=== PATIENT | female | born 2000 | race Caucasian/White ===

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

== ENCOUNTER 2023-05-09 09:13 | Oncology outpatient (recurring) (ONCR) | payer OTHER, MEDICAID, SELFPAY ==
[2023-05-09 14:13] VITALS: BP 127/82; PULSE 97; RESP 18; TEMP 36.7; O2SAT 98
== END 2023-06-02 23:59 | disposition home or self-care (01) ==
PROVIDERS: PCP Family Medicine; Visit Provider Family Medicine
DX: O26.893 Other specified pregnancy related conditions, third trimester (principal); Z67.91 Unspecified blood type, Rh negative; Z53.9 Procedure and treatment not carried out, unspecified reason
CPT/HCPCS: 36415; 86850; 86900; 90384

== ENCOUNTER 2023-06-14 10:36 | Outpatient (CLI) | payer OTHER, MEDICAID, SELFPAY ==
[2023-06-14] VITALS (7 sets, daily range): BP systolic 104–119; BP diastolic 55–59; PULSE 82–86; RESP 16–18; BMI 35.0
[2023-06-14 11:53] LABS: Bilirubin Urine Neg (Negative); Blood Urine Neg (Negative); Glucose Urine UA Norm (Normal); Ketones Urine 1+ (Negative); Leukocyte Esterase Urine 2+ (Negative); Nitrate Urine Negative (Negative); Protein Urine Trace (Negative); Specific Gravity, Urine 1.025 (1.005-1.030); Urine Appearance Cloudy (CLEAR); Urine Color Dark Yellow (Yellow); Urobilinogen Urine Norm (Negative); pH Urine 6 (5-7)
[2023-06-14 11:57] LABS: Add Urine Culture? Yes; Bacteria Urine 2+ /hpf; Calcium Oxalate Crystals Urine 25-40 /hpf; Mucus Urine 2+ /hpf; RBC Urine 0-4 /hpf (0-2); Transitional Epi Cells Urine 0-4 /hpf
== END 2023-06-14 12:15 | disposition home or self-care (01) ==
LOC: OPOB 10:40 → OBGYN 10:41
PROVIDERS: PCP Family Medicine; Visit Provider Family Medicine
DX: O26.899 Other specified pregnancy related conditions, unspecified trimester (principal); Z3A.00 Weeks of gestation of pregnancy not specified; R10.9 Unspecified abdominal pain
CPT/HCPCS: 59025; 81001; 87086; 99211

== ENCOUNTER 2023-07-28 10:27 | Outpatient (CLI) | payer OTHER, MEDICAID, SELFPAY ==
[2023-07-28 10:29] VITALS: BMI 36.4
[2023-07-28 10:33] VITALS: BP 135/77; PULSE 103
[2023-07-28 10:49] VITALS: BP 119/64; PULSE 100
[2023-07-28 11:00] VITALS: BP 119/64; PULSE 100; RESP 16; TEMP 36.4
== END 2023-07-28 11:03 | disposition home or self-care (01) ==
LOC: OPOB 10:27 → OBGYN 10:28
PROVIDERS: PCP Family Medicine; Visit Provider Family Medicine
DX: O41.00X0 Oligohydramnios, unspecified trimester, not applicable or unspecified (principal); X58.XXXA Exposure to other specified factors, initial encounter
CPT/HCPCS: 59025

== ENCOUNTER 2023-08-07 01:52 | Outpatient (CLI) | payer OTHER, MEDICAID, SELFPAY ==
[2023-08-07 01:45] VITALS: BMI 37.3
[2023-08-07 02:02] VITALS: BP 132/98; PULSE 100
[2023-08-07 02:24] VITALS: BP 123/72; PULSE 96
[2023-08-07 02:35] VITALS: TEMP 36.1
[2023-08-07 02:50] VITALS: BP 123/72; PULSE 96; RESP 16; TEMP 36.1
== END 2023-08-07 02:54 | disposition home or self-care (01) ==
LOC: OPOB 01:56 → OBGYN 01:58
PROVIDERS: PCP Family Medicine; Visit Provider Family Medicine
DX: O46.90 Antepartum hemorrhage, unspecified, unspecified trimester (principal); Z3A.00 Weeks of gestation of pregnancy not specified
CPT/HCPCS: 59025; 99211

== ENCOUNTER 2023-08-11 00:39 | Outpatient (CLI) | payer OTHER, MEDICAID, SELFPAY ==
[2023-08-11 00:37] VITALS: BMI 38.4
[2023-08-11 00:52] VITALS: BP 132/77; PULSE 105
[2023-08-11 00:57] VITALS: TEMP 35.4
[2023-08-11 01:12] VITALS: BP 127/75; PULSE 90
[2023-08-11 01:59] VITALS: BP 135/76; PULSE 112
[2023-08-11] MEDS: ondansetron 4 MG Tablet PO (02:11)
[2023-08-11 02:57] VITALS: BP 132/79; PULSE 98
== END 2023-08-11 03:07 | disposition home or self-care (01) ==
LOC: OPOB 00:39 → OBGYN 00:40
PROVIDERS: PCP Family Medicine; Visit Provider Family Medicine
DX: O26.899 Other specified pregnancy related conditions, unspecified trimester (principal); Z3A.00 Weeks of gestation of pregnancy not specified
CPT/HCPCS: 59025; 99211; Q0162

== ENCOUNTER 2023-08-21 16:02 | Inpatient (IN) | payer OTHER, MEDICAID, SELFPAY ==
[2023-08-21] VITALS (50 sets, daily range): BP systolic 101–139; BP diastolic 58–95; PULSE 56–109; RESP 15–16; TEMP 36.3; O2SAT 91–100; BMI 42.7
--- NOTE | 2023-08-21 13:40 | USR_ITS ---
PROCEDURE INFORMATION: Exam: US , Limited Exam date and time: 08/21/2023 2:41 PM Age: 22 years old Clinical indication: Condition or disease; Other: Bradycardia; LABS AND CLINICAL REPORTS: Gestational age (Established): 40 w 2 d Estimated due date (Established): 08/19/2023 TECHNIQUE: Imaging protocol: Real-time ultrasound of the maternal uterus with image documentation. Exam focused on the clinical indication. COMPARISON: US OB >= 14 weeks fetus [id number] 04/20/2023 12:03 PM FINDINGS: Gestation: Detailed structure assessment was not performed on this exam. heart rate: cardiac activity is 124 bpm. There is decreased amniotic fluid level with CONCEPCIÓN of 4.3 cm with mean of 12.3 cm and 2.5th percentile of 6.3 cm. Findings are compatible with severe oligohydramnios. Placenta: The placenta is anterior. Relationship between inferior placental margin versus internal os is not assessed on this exam. BIOPHYSICAL PROFILE: gross body movement (BPP): There is motion and cardiac activity observed on real-time. MATERNAL: Uterus: There is a single intrauterine fetus in vertex position. Cervix: Maternal cervix is poorly visualized. Other findings: Limited 3rd trimester OB ultrasound was performed in conjunction with biophysical profile assessment. PROCEDURE INFORMATION: Exam: US Biophysical Profile Without Non-Stress Test Exam date and time: 08/21/2023 2:41 PM Age: 22 years old Clinical indication: Condition or disease; Other: Bradycardia; TECHNIQUE: Imaging protocol: US biophysical profile without non-stress testing. COMPARISON: US OB >= 14 weeks fetus [id number] 04/20/2023 12:03 PM FINDINGS: heart rate: 124 bpm Amniotic fluid index: CONCEPCIÓN is 4.32 cm. BIOPHYSICAL PROFILE: breathing (BPP): 2 out of 2. gross body movement (BPP): 2 out of 2. tone (BPP): 2 out of 2. Amniotic fluid (BPP): 2 out of 2. US/US OB BPP wo NST [id number] IMPRESSION: 1. Limited ultrasound in conjunction with biophysical exam report below. 2. Single live uterine fetus in vertex position with severe oligohydramnios. cardiac activity measures 124 bpm. IMPRESSION: 1. Biophysical profile score is 8/8. 2. Please also refer to limited Ob ultrasound report above. There is severe oligohydramnios.
[2023-08-21] MEDS: miSOPROStol 100 mcg tablet 25 MCG VAGINAL (15:34)
[2023-08-21 15:54] LABS: Basophils % 0.2 %; Eosinophils # 0.1 10^3/uL (0.0-0.8); Eosinophils % 0.8 %; Hematocrit 37.4 % (36-47); Lymphocytes % 16.5 %; Mean Corpuscular HGB Conc 29.9 g/dL (30-55); Mean Corpuscular Hemoglobin 22.6 pg (27-33); Mean Corpuscular Volume 75.4 fl (85-98); Mean Platelet Volume 9.7 fL (7.4-10.4); Monocytes # 0.8 10^3/uL (0.2-0.9); Monocytes % 6.3 %; Neutrophils # 9.09 10^3/uL (1.8-7.7); Neutrophils % 75.9 %; Nucleated Red Blood Cells % 0 %; Platelet Count 310 10^3/cmm (157-399); Red Blood Count 4.96 10^6/uL (3.85-5.65); Red Cell Distribution Width 16.8 % (12.1-15.1); White Blood Count 11.97 10^3/uL (3.29-11.43)
--- NOTE | 2023-08-21 17:19 | P.ANESASSM_ITS ---
Pre-Anesthetic Assessment Height/Weight: Height 1.55 m Weight 102.512 kg Pulse BP Pulse Ox O2 Del Method 87 118/60 100 Room Air 08/21/23 17:14 08/21/23 17:14 08/21/23 16:59 08/21/23 15:17 Familial anesthetic complications: none Was Beta Tanner taken within 24 hours: N/A Was Clonidine taken within 24 hours: N/A Social No alcohol and No tobacco Exam alert, oriented x 3, clear to auscultation bilaterally and regular rate & rhythm Airway Submandibular: within normal limits Cervical ROM: within normal limits Mallampati: Class II Dentition: full Metabolic Morbid Obesity Anesthetic Plan ASA status: 2 Anesthesia: Regional (specify below) (Labor epidural) Medications/Allergies Home Medications Medication Instructions Recorded Confirmed Last Taken Type pren vit comb.1-iron cb-FA-DSS 90 1 tab PO DAILY 06/14/23 08/11/23 08/11/23 History mg-1 mg-50 mg tablet Allergies Allergy/AdvReac Type Severity Reaction Status Date / Time Penicillins Allergy ALGY-Anaphy Verified 08/11/23 01:41 laxis Current Medications Generic Name Dose Route Start Last Admin Trade Name Freq PRN Reason Stop Dose Admin Misoprostol 25 mcg 08/21/23 15:19 08/21/23 15:34 Misoprostol 100 Mcg Tablet VAGINAL 25 mcg Q4H PRN Administration cervical ripening PFSH Anesthesia Social History Smoking and tobacco/nicotine status: never used tobacco/nicotine Female Reproductive History : 2 Data Anesthesia 08/21/23 15:45 Short CBC 08/21/23 Range/Units 15:45 WBC 11.97 H (3.29-11.43) 10^3/uL Hgb 11.20 L (11.27-16.99) g/dL Hct 37.4 (36-47) % MCV 75.4 L (85-98) fl Plt Count 310 (157-399) 10^3/cmm Neut % (Auto) 75.9 % Neut # (Auto) 9.09 H (1.8-7.7) 10^3/uL Blood Bank 08/21/23 15:45 Blood Type A Negative Rho(D) Type Rh negative Antibody Screen Negative Cardiac Studies: 2 No Data to Display Anesthesia Procedures Epidural Time Out Performed: Yes Consents Signed: Procedure Consent Consent: requested by attending/covering physician, from patient, risks and benefits reviewed and emergency procedure Lumbar Level: L3-L4 Epidural position: sitting Epidural procedure: sterile prep of area, 1% lidocaine to numb the area, 18 g needle, neg for paresthesia, test dose given, 1.5% xylocaine 1:200k epi, placed PCEA, no systemic response, sterile dressing applied and 0.2% Ropiavacaine @ mls/hr (10) Additional Comments: PHONG at 6cm, cath to 11cm, bolused 5mls of 2% lido
--- NOTE | 2023-08-21 20:10 | PC.NURSE ---
Patient in OR during recovery following section, nurse attempting to obtain temperature orally and axillary but multiple thermometers not reading temp, patient's skin cool to touch on face and arms and states is cold. Marie hugger and warm blankets placed on patient.
--- NOTE | 2023-08-21 20:57 | PM.OBGYHP ---
Providers/Chief Complaint Admitting Physician: Devante Duque MD Primary Care Provider: Rene Gates MD Chief Complaint: Contractions HPI PATIENT TRANSPORTATION DRIVER History of Present Illness Divya Quinones is a 22 year old female 3 para 0-0-2-0 at 40 weeks and 3 days who presented to the hospital having infrequent contractions. As a part of the initial evaluation, the baby was noted to have a heart rate in the 10 5-1 10 range. As result a biophysical profile was performed. The CONCEPCIÓN was noted to be below 5. Given her gestational age the decision was made to proceed with an induction. She was placed on Cytotec 25 mcg. An amniotomy was performed. An epidural was placed. She progressed to 5 cm dilated and 80% effaced. Her baby began to have minimal variability. The heart rate then dropped into the 90s then later dropped into the 60s. At that point the decision was made to proceed with a section. Present Details : 2 Para: 0 Labs Rubella: Immune RPR: Negative GBS: Negative Review of Systems General: Reports: 10 or more systems reviewed and unremarkable except in HPI and below Const: Reports: fatigue; Denies: fever(s) Eyes: Denies: change in vision Card: Denies: chest pain Musc: Reports: back pain Tim/Lymph: Denies: easy bruising Medications/Allergies Home Medications Medication Instructions Recorded Confirmed Last Taken Type pren vit comb.1-iron cb-FA-DSS 90 1 tab PO DAILY 06/14/23 08/11/23 08/11/23 History mg-1 mg-50 mg tablet Allergies Allergy/AdvReac Type Severity Reaction Status Date / Time Penicillins Allergy ALGY-Anaphy Verified 08/11/23 01:41 laxis PFSH PATIENT TRANSPORTATION DRIVER PFSH: Social History Smoking and tobacco/nicotine status: never used tobacco/nicotine Vitals/I&O/Wt Last Vital Signs Pulse 88 08/21/23 19:25 BP 118/68 08/21/23 19:25 Pulse Ox 100 08/21/23 19:15 O2 Del Method Room Air 08/21/23 15:17 Weight last 48 hrs Weight 226 lb Physical Exam Const: COMMON NORMALS: patient oriented x3 and alert HENMT: COMMON NORMALS: moist oral mucous membranes HEAD & SCALP: normal to inspection Chest: COMMONS NORMALS: normal inspection of the chest Resp: COMMON NORMALS: clear to auscultation bilaterally AUSCULTATION: clear to auscultation bilaterally Cardio: COMMON NORMALS: regular rate and regular rhythm RATE: regular rate RHYTHM: regular rhythm GI: INSPECTION: Yes normal to inspection and Yes other (Gravid) Extremity: COMMON NORMALS: normal to inspection GENERAL: Yes edema (Trace) Neuro: COMMON NORMALS: patient oriented x3, moves all extremities and no sensory deficits noted SENSORIUM/ORIENTATION: Yes alert Psych: COMMON NORMALS: mental status grossly normal Skin: COMMON NORMALS: no rashes or lesions noted GENERAL SKIN EXAM: no rashes or lesions noted Urinary Catheter Management: Moore: Cath Placed During This Visit: yes Urinary Catheter Date of Insertion: 08/21/23 Urinary Catheter Time of Insertion: 18:15 Data 08/21/23 15:45 Results Labs OB ([facility]): Obstetrics US 09/16/19 Obstetrics US/Biophysical Profile 08/21/23 Blood Type A Negative 08/21/23 Antibody Screen Negative 08/21/23 Hct 37.4 % (36-47) 08/21/23 Hgb 11.20 g/dL (11.27-16.99) L 08/21/23 Rho(D) Type Rh negative 08/21/23 Plt Count 310 10^3/cmm (157-399) 08/21/23 Ser , Semi-Qnt 5.75 mIU/mL 11/26/19 Micro Urine Specimen 06/14/23 A&P Assessment and plan (1) 40 weeks gestation of : (2) heart rate decelerations affecting management of mother: We will proceed with this emergent section. I briefly discussed risks with mom prior to going back to the OR. (3) Oligohydramnios antepartum: Attestations Medical Necessity Statement*: Anticipate routine and post care. Coding Level of Care Code Acute Code for Chg Fwd Diagnoses 40 weeks gestation of Z3A.40 heart rate decelerations affecting management of mother O36.8390 Oligohydramnios antepartum O41.00X0
--- NOTE | 2023-08-21 21:01 | PM.OP ---
Operative Report Date of procedure: August 21, 2023 Pre-op diagnosis: 1. 22-year-old 3 para 0-0-2-0 at 40 weeks and 3 days estimated gestational age 2. Oligohydramnios 3. Nonreassuring heart tones Post-op diagnosis: Same Procedure done: Emergent low-transverse section Specimens removed/disposition: 1. Male with a weight of 7 pounds 13 ounces and Apgars of 8 and 9 2. Placenta with three-vessel cord delivered intact Surgeon: Devante Duque MD Estimated blood loss (mL): 800 Complications: None Procedure: The patient was brought back to the operating room where she was prepped and draped in usual sterile fashion. Her epidural was dosed prior to going to the OR and was found to be adequate. A lower transverse skin incision was then made with a #10 blade. I then dissected down to the underlying subcutaneous tissue until arriving at the prerectal fascia. The fascia was then nicked with the scalpel bilaterally. The fascial incisions were then carried laterally with Olsen scissors. Attention was then turned to the superior aspect of the incision which was grasped with kochers and tented up away from the underlying rectus abdominis muscles. The muscles were then dissected away from the fascia manually, and later with Olsen scissors. Attention was then turned to the inferior aspect of the incision, and the fascia was dissected away from the underlying muscle in similar fashion. The rectus abdominis muscles were then spread manually. The peritoneum was entered manually. Excellent visualization of the uterus was noted. A lower transverse uterine incision was then made with a #10 blade. Upon arriving at the intrauterine cavity, the uterine incision was then extended manually. The infant was noted to be in vertex position. The baby was delivered without difficulty and placed on the abdomen. The cord was cut and clamped. The baby was then handed to the waiting nurse. The placenta was removed intact. The uterus was externalized. The intrauterine cavity was cleansed of any remaining debris. The uterine incision was reapproximated in 2 layers. The first layer was performed with 0 Vicryl in a running locked stitch. The second layer was an imbricating stitch also using 0 Vicryl. The uterus was replaced into the abdomen. The peritoneum was then irrigated with warm saline. I reexamined the uterine incision and found it to be hemostatic. The rectus abdominis muscles were then reapproximated using 0 Vicryl in a running stitch. The fascia was then reapproximated using 0 Vicryl in running stitch. The subcutaneous tissue was reapproximated using 0 Vicryl in a running stitch. The skin was reapproximated using 4-0 Vicryl on a Elmer needle in a running subcuticular stitch. Steri-Strips were placed. A sterile dressing was placed. All counts were correct x2. Both the mother and baby were in stable condition.
[2023-08-22] VITALS (19 sets, daily range): BP systolic 92–134; BP diastolic 51–77; PULSE 70–106; RESP 15–16; TEMP 36.1–36.4; O2SAT 98
[2023-08-22] MEDS: ketorolac 30 mg/mL INJ IVP ×3 (02:18→15:56)
[2023-08-22 06:03] LABS: Hematocrit 29.5 % (36-47); Mean Corpuscular HGB Conc 31.2 g/dL (30-55); Mean Corpuscular Hemoglobin 23.1 pg (27-33); Mean Corpuscular Volume 74.1 fl (85-98); Mean Platelet Volume 10.1 fL (7.4-10.4); Platelet Count 264 10^3/cmm (157-399); Red Blood Count 3.98 10^6/uL (3.85-5.65); Red Cell Distribution Width 16.3 % (12.1-15.1); White Blood Count 17.02 10^3/uL (3.29-11.43)
[2023-08-22] MEDS: HYDROcodone-acetaminophen 5-325 mg Tablet PO ×4 (06:20→21:07)
--- NOTE | 2023-08-22 08:38 | ANE.PACU2 ---
Inpatient post-anesthesia follow up: Airway intact: Yes Vital signs: Temperature 97.3 F Pulse Rate 94 Respiratory Rate 15 Blood Pressure 118/61 Pulse Oximetry 100 Oxygen Delivery Me thod Room Air Oxygen Flow Rate Fraction of Inspir ed Oxygen Hydration adequate: Yes Nausea and vomiting: No Pain level: 2 Mental status: Baseline Epidural Start/End: Epidural Start Date: 08/21/23 Epidural Start Time: 16:45 Epidural End Date: 08/21/23 Epidural End Time: 21:00
--- NOTE | 2023-08-22 09:18 | PC.NURSE ---
Emilee care performed. Pad changed. Pt ambulated length of post hallway and back to room without difficulty. Pt remains sitting up in chair at this time.
[2023-08-22] MEDS: PRENATAL VIT NO.130/IRON/FOLIC 1 EACH TABLET PO (10:57)
[2023-08-22] MEDS: docusate sodium 100 mg Capsule PO ×2 (10:57→18:31)
--- NOTE | 2023-08-22 11:05 | PC.NURSE ---
pt up to bathroom with minimal assistance. david care by pt. pad/underwear/gown changed. pt back to bed no assistance needed. in to assist with feeding. meds provided. fresh ice water given.
--- NOTE | 2023-08-22 16:54 | P.PN_ITS ---
Subjective 2 Subjective: Postop day 1 primary section for nonreassuring heart tones. The patient is doing well. She has been up and ambulating. She is passing flatus and tolerating a regular diet. Her catheter has been removed and her pain is controlled. She states her bleeding is about like a period and is less than it was last night. Vitals/I&O/Wt Last Vital Signs Temp 97.5 F L 08/22/23 11:00 Pulse 88 08/22/23 10:59 Resp 16 08/22/23 11:00 BP 109/77 08/22/23 10:59 Pulse Ox 100 08/21/23 22:28 O2 Del Method Room Air 08/21/23 20:30 08/22/23 08/22/23 08/22/23 06:59 14:59 22:59 Intake Total 1100 / 1100 600 / 600 Output Total 1525 / 1525 600 / 600 Balance -425 / -425 0 / 0 Weight last 48 hrs Weight 102.512 kg Physical Exam 2 Narrative: Resting in bed, easily arousable, heart regular rate and rhythm, lungs clear to auscultation bilaterally, abdomen is soft with appropriate postoperative tenderness, fundus is firm, pressure bandage is clean dry and intact. Extremities have no calf tenderness and trace edema Urinary Catheter Management: Moore: Cath Placed During This Visit: yes, but has since been removed by the nurse Reason for Continuing Indwelling Catheter: Decision to DC Catheter Urinary Catheter Date of Insertion: 08/21/23 Urinary Catheter Time of Insertion: 18:15 Date Urinary Catheter Removed: 08/22/23 Time Urinary Catheter Discontinued: 10:00 Data 08/22/23 05:55 A&P Assessment and plan (1) Status post primary low transverse section: Postop day #1 doing well. Continue routine and postoperative care. Patient does plan to shower this evening and she was advised to remove the pressure bandage at that time. Attestations 2 Medical Necessity Statement*: Routine postoperative and care Coding Level of Care Code Acute Code for Chg Fwd Diagnoses Status post primary low transverse section Z98.891
[2023-08-22] MEDS: simethicone 80 mg Chew PO (21:07)
[2023-08-22] MEDS: ferrous sulfate EC 325 mg Tablet PO (21:07)
[2023-08-22] MEDS: lanolin oint 7 gm 1 APPLIC TOPICAL (21:08)
[2023-08-23] MEDS: ibuprofen 800 mg tablet PO ×4 (00:06→20:59)
[2023-08-23] MEDS: HYDROcodone-acetaminophen 5-325 mg Tablet PO (02:40)
[2023-08-23 03:40] VITALS: BP 117/56; PULSE 88; RESP 16; TEMP 36.4
[2023-08-23 10:00] VITALS: TEMP 36.7
[2023-08-23] MEDS: ferrous sulfate EC 325 mg Tablet PO ×2 (10:29→19:01)
[2023-08-23] MEDS: PRENATAL VIT NO.130/IRON/FOLIC 1 EACH TABLET PO (10:29)
[2023-08-23] MEDS: docusate sodium 100 mg Capsule PO ×2 (10:30→19:01)
[2023-08-23 10:33] VITALS: BP 131/60; PULSE 93
[2023-08-23 16:15] VITALS: BP 122/60; PULSE 91
--- NOTE | 2023-08-23 16:42 | P.PN_ITS ---
Subjective 2 Subjective: Postop day #2 primary section for nonreassuring heart tones. She has been doing well. She has no complaints. She is ambulating and tolerating a regular diet. She states that her bleeding is not very much at all. Vitals/I&O/Wt Last Vital Signs Temp 98.1 F 08/23/23 10:00 Pulse 91 08/23/23 16:15 Resp 16 08/23/23 03:40 BP 122/60 08/23/23 16:15 Pulse Ox 98 08/22/23 17:46 O2 Del Method Room Air 08/23/23 03:40 Physical Exam 2 Narrative: Alert and oriented, sitting up in bed currently pumping, heart regular rate and rhythm, lungs clear to auscultation bilaterally, abdomen is soft with appropriate postoperative tenderness, incision is clean dry and intact with Steri-Strips in place, extremities have trace edema but no calf tenderness Urinary Catheter Management: Moore: Cath Placed During This Visit: yes, but has since been removed by the nurse Reason for Continuing Indwelling Catheter: Decision to DC Catheter Urinary Catheter Date of Insertion: 08/21/23 Urinary Catheter Time of Insertion: 18:15 Date Urinary Catheter Removed: 08/22/23 Time Urinary Catheter Discontinued: 10:00 Data 08/22/23 05:55 A&P Assessment and plan (1) Status post primary low transverse section: Postop day #2 doing well. Continue routine postoperative and care. Likely discharge home in the morning. Attestations 2 Medical Necessity Statement*: Routine postoperative and care Coding Level of Care Code Acute Code for Chg Fwd Diagnoses Status post primary low transverse section Z98.891
[2023-08-23] MEDS: simethicone 80 mg Chew PO (20:59)
[2023-08-23 21:01] VITALS: BP 122/62; PULSE 87; RESP 18; TEMP 37
[2023-08-24 04:39] VITALS: BP 126/68; PULSE 77
[2023-08-24 04:40] VITALS: BP 126/68; PULSE 77; RESP 18; TEMP 36.9
[2023-08-24] MEDS: HYDROcodone-acetaminophen 5-325 mg Tablet PO (04:43)
--- NOTE | 2023-08-24 06:53 | PM.OBGYDC ---
Discharge Providers DRUPAL PHP DEVELOPER Date of Admission: 08/21/23 16:02 Date of Discharge: 08/24/23 Attending Provider at Admission: Tabitha Duque MD Attending Provider at Discharge: Tabitha Duque MD Primary Care Provider: Rene Gates MD Diagnoses at Discharge Discharge Diagnosis (1) Status post primary low transverse section: Status: Acute Reason for Visit Reason for Visit: Contractions Hospital Course Hospital Course The patient presented to the hospital in active labor. She was noted to have oligohydramnios on BPP. Her contractions were irregular. An amniotomy was performed. She was placed on Cytotec. An epidural was placed. She began having reduced variability and had several deep decelerations. The was performed. Her course was relatively unremarkable. Her bleeding was within normal limits. Her pain was well-controlled. She passed gas and her diet was advanced. She tolerated her diet well. There were no concerns. Information Peripartum Data: Delivery Method: Physical Exam Narrative: She is in no acute distress Lungs are clear auscultation bilaterally Her heart has a regular rate and rhythm Her fundus is below the umbilicus and firm Her dressing is clean, dry and intact Her extremities have trace edema Urinary Catheter Management: Moore: Cath Placed During This Visit: yes, but has since been removed by the nurse Reason for Continuing Indwelling Catheter: Decision to DC Catheter Urinary Catheter Date of Insertion: 08/21/23 Urinary Catheter Time of Insertion: 18:15 Date Urinary Catheter Removed: 08/22/23 Time Urinary Catheter Discontinued: 10:00 Discharge Data Studies Completed and Pending Completed Studies During Hospitalization Category Date Time Status US OB BPP NST 10056 Stat Ultrasound 08/21/23 13:40 Completed Radiology Impressions Obstetrics US/Biophysical Profile 08/21/23 13:40 IMPRESSION: 1. Limited ultrasound in conjunction with biophysical exam report below. 2. Single live uterine fetus in vertex position with severe oligohydramnios. cardiac activity measures 124 bpm. IMPRESSION: 1. Biophysical profile score is 8/8. 2. Please also refer to limited Ob ultrasound report above. There is severe oligohydramnios. ADDENDUM: 08/21/23 1620 Addendum TABITHA Mascorro was notified by phone 5:19 p.m. Eastern time. Laboratory Results WBC 17.02 10^3/uL (3.29-11.43) H 08/22/23 05:55 RBC 3.98 10^6/uL (3.85-5.65) 08/22/23 05:55 Hgb 9.20 g/dL (11.27-16.99) L 08/22/23 05:55 Hct 29.5 % (36-47) L 08/22/23 05:55 MCV 74.1 fl (85-98) L 08/22/23 05:55 MCH 23.1 pg (27-33) L 08/22/23 05:55 MCHC 31.2 g/dL (30-55) 08/22/23 05:55 RDW 16.3 % (12.1-15.1) H 08/22/23 05:55 Plt Count 264 10^3/cmm (157-399) 08/22/23 05:55 MPV 10.1 fL (7.4-10.4) 08/22/23 05:55 Neut % (Auto) 75.9 % 08/21/23 15:45 Lymph % (Auto) 16.5 % 08/21/23 15:45 [place] % (Auto) 6.3 % 08/21/23 15:45 Eos % (Auto) 0.8 % 08/21/23 15:45 Baso % (Auto) 0.2 % 08/21/23 15:45 Neut # (Auto) 9.09 10^3/uL (1.8-7.7) H 08/21/23 15:45 Lymph # (Auto) 2.0 10^3/uL (0.8-4.8) 08/21/23 15:45 [place] # (Auto) 0.8 10^3/uL (0.2-0.9) 08/21/23 15:45 Eos # (Auto) 0.1 10^3/uL (0.0-0.8) 08/21/23 15:45 Baso # (Auto) 0.0 10^3/uL (0.0-0.1) 08/21/23 15:45 Nucleated RBC % (auto) 0 % 08/21/23 15:45 Nucleated RBCs # 0.0 /100WBC 08/21/23 15:45 Blood Type A Negative 08/21/23 15:45 Rho(D) Type Rh negative 08/21/23 15:45 Antibody Screen Negative 08/21/23 15:45 Screen Negative (Negative) 08/22/23 05:55 Vitals Last Vital Signs Temp 98.4 F 08/24/23 04:40 Pulse 77 08/24/23 04:40 Resp 18 08/24/23 04:40 BP 126/68 08/24/23 04:40 Pulse Ox 98 08/22/23 17:46 O2 Del Method Room Air 08/24/23 04:40 Results Labs OB ([facility]): Obstetrics US 09/16/19 Obstetrics US/Biophysical Profile 08/21/23 Blood Type A Negative 08/21/23 Antibody Screen Negative 08/21/23 Hct 29.5 % (36-47) L 08/22/23 Hgb 9.20 g/dL (11.27-16.99) L 08/22/23 Rho(D) Type Rh negative 08/21/23 Plt Count 264 10^3/cmm (157-399) 08/22/23 Ser , Semi-Qnt 5.75 mIU/mL 11/26/19 Micro Urine Specimen 06/14/23 Discharge Plan Discharge Patient Disposition: Home Condition: Stable Prescriptions: New docusate sodium 100 mg Capsule 100 mg PO BID Qty: 14 0RF ibuprofen 800 mg Tablet 800 mg PO TID Qty: 45 0RF hydrocodone-acetaminophen 5-325 mg Tablet 1 tab PO Q6H PRN (Reason: Moderate To Severe Pain) Qty: 28 0RF Continued pren vit comb.1-iron cb-FA-DSS 90-1-50 mg Tablet 1 tab PO DAILY Discharge Orders: Discharge Order (Routine); Ordered 08/24/23 Ordered By: Tabitha Duque Referrals: Tabitha Duque MD [Physician] - 4-7 days (Please set up an appointment for 6 weeks for a check as well. Thank you) Discharge Diet: Usual diet Discharge Activity: Limit activity as instructed Patient Instructions: Depression (DC), Opioid Safety (DC), Preeclampsia and Eclampsia After Delivery (GEN), Hemorrhage (DC), OB - Dunia/Medardo, OB Discharge Report, OB Food/Drug Interaction Guide, OB Care at Home, Opioid Safety, Abnormal Bleeding Discharge Attestations DRUPAL PHP DEVELOPER Time Spent in Discharge Care*: less than 30 min Coding Level of Care Code Acute Code for Chg Fwd Diagnoses Status post primary low transverse section Z98.891
[2023-08-24] MEDS: docusate sodium 100 mg Capsule PO (08:16)
[2023-08-24] MEDS: ibuprofen 800 mg tablet PO (08:16)
[2023-08-24] MEDS: PRENATAL VIT NO.130/IRON/FOLIC 1 EACH TABLET PO (08:16)
[2023-08-24] MEDS: ferrous sulfate EC 325 mg Tablet PO (08:16)
[2023-08-24 08:36] VITALS: BP 128/67; PULSE 85
[2023-08-24 08:50] VITALS: RESP 16; TEMP 36.7
[2023-08-24 09:00] VITALS: BP 128/67; PULSE 85; RESP 16; TEMP 36.7
== END 2023-08-24 09:00 | disposition home or self-care (01) | DRG 788 ==
LOC: OPOB 16:02 → OBGYN 16:02
PROVIDERS: Admitting Provider Family Medicine; PCP Family Medicine; Visit Provider Family Medicine
PROC: 10D00Z1 Extraction of Products of Conception, Low, Open Approach (ICD-10-PCS; CPT 59514; principal; 2023-08-21 19:45)
DX: O41.03X0 Oligohydramnios, third trimester, not applicable or unspecified (principal); O48.0 Post-term pregnancy; Z3A.40 40 weeks gestation of pregnancy; O76 Abnormality in fetal heart rate and rhythm complicating labor and delivery; Z37.0 Single live birth; O26.893 Other specified pregnancy related conditions, third trimester; Z67.11 Type A blood, Rh negative
CPT/HCPCS: 36415; 36430; 51702; 59025; 59409; 76819; 85025; 85027; 85460; 86850; 86900; 90384; 98960; 99211; J0330; J1885; J2274; J2371; J2405; J2704; J3490

== ENCOUNTER 2023-12-12 17:57 | Emergency (ER) | payer OTHER, MEDICAID, SELFPAY ==
[2023-12-12 18:04] VITALS: BP 116/77; PULSE 87; TEMP 37.1; O2SAT 98; BMI 34.4
[2023-12-12 18:28] VITALS: BP 124/89; RESP 105; O2SAT 96
--- NOTE | 2023-12-12 18:28 | USR_ITS ---
PROCEDURE INFORMATION: Exam: US Abdomen, Limited; Right Upper Quadrant Exam date and time: 12/12/2023 7:07 PM Age: 23 years old Clinical indication: Abdominal pain; Epigastric; Additional info: Ruq pain radiates into back TECHNIQUE: Imaging protocol: Real time ultrasound of the abdomen with image documentation. Limited exam focused on the right upper quadrant. COMPARISON: US abdomen limited 60411 01/12/2018 8:33 AM FINDINGS: Liver: Mildly enlarged, with the right hepatic lobe measuring 18.4 cm in length. No masses. Gallbladder: The gallbladder is contracted. The gallbladder wall measures up to 0.5 cm in thickness. No cholelithiasis. Negative sonographic Carl's sign. Biliary ducts: Normal. No stones. No dilation. Common bile duct measures 0.3 cm in caliber. Pancreas: Visualized portions of the pancreas are unremarkable. Right kidney: Normal. No mass. No hydronephrosis. The right kidney measures 11.5 cm in length. Aorta: Visualized abdominal aorta is normal in caliber. The proximal aorta measures 2.8 cm. The mid aorta measures 2.9 cm. The distal aorta measures 1.7 cm. Inferior vena cava: In the upper IVC measures 2.0 cm in caliber. Portal venous: Appropriate directional flow within the main portal vein. Intraperitoneal space: No free fluid in the visualized abdomen. US/US gall bladder [id number] IMPRESSION: 1. Gallbladder is decompressed. Mild gallbladder wall thickening is likely related to underdistention. No sonographic evidence of acute cholecystitis. Isolated gallbladder wall thickening in the setting of an otherwise unremarkable gallbladder can be seen with acute hepatitis, though the degree of gallbladder wall thickening is usually more pronounced with hepatitis. Additionally, there are no sonographic abnormalities within the liver to suggest this diagnosis. Recommend correlation clinical findings. 2. Mild hepatomegaly.
--- NOTE | 2023-12-12 18:30 | ED_ITS ---
HPI - Abdominal Pain 2 General: Chief Complaint: Abdominal Pain Stated Complaint: Fever\ABD Pain Time Seen by Provider: 12/12/23 18:22 Source: patient Mode of arrival: ambulatory Limitations: no limitations History of Present Illness: Patient is a 23-year-old female presenting to the emergency department complaining of abdominal pain for the past week. She was sent by her primary care provider due to the persistence of symptoms, was initially seen at urgent care over the weekend and had negative swabs for COVID, flu, and strep. States she is only continually had worsening of her pain, stating it is to the epigastric and right upper quadrant with some radiation into the back. Still has her gallbladder, history of appendectomy. Also was reporting nausea and vomiting, stating she cannot keep anything down. Is also having diarrhea and subjective fevers. She has been taking Zofran for her nausea this has not been helping. She does note that her pain is worse with eating. No other symptoms to report at this time. MD elicited complaint: abdominal pain Onset (ago): day(s) Pain Consistency: constant Location: Epigastric and RUQ Severity: moderate Quality: burning Radiation: back Exacerbating factors: eating Relieving factors: nothing Associated Symptoms: Reports diarrhea, fever(s), nausea and vomiting; Denies bloating, change in stool character, chills, constipation, dysuria and hematochezia Related Data Home Medications Medication Instructions Recorded Confirmed pren vit comb.1-iron cb-FA-DSS 90 1 tab PO DAILY 06/14/23 08/22/23 mg-1 mg-50 mg tablet Previous Rx's Medication Instructions Recorded docusate sodium 100 mg capsule 100 mg PO BID #14 caps 08/24/23 hydrocodone 5 mg-acetaminophen 325 1 tab PO Q6H PRN Moderate To 08/24/23 mg tablet Severe Pain #28 tabs ibuprofen 800 mg tablet 800 mg PO TID #45 tabs 08/24/23 ciprofloxacin HCl 500 mg tablet 500 mg PO BID 10 days #20 tabs 12/12/23 (Cipro) Allergies Allergy/AdvReac Type Severity Reaction Status Date / Time Penicillins Allergy ALGY-Anaphy Verified 12/12/23 18:07 laxis Review of Systems 2 General: Reports: 10 or more systems reviewed and unremarkable except in HPI and below Const: Reports: fever(s) and change in appetite; Denies: chills, change in weight or diaphoresis ENMT: Denies: throat pain or hoarseness Card: Denies: chest pain, palpitations or lightheadedness Resp: Denies: dyspnea, productive cough or wheezing GI: Reports: abdominal pain, nausea, vomiting and diarrhea; Denies: constipation, bloating, change in stool character or hematochezia : Denies: flank pain, difficulty voiding, dysuria, urinary frequency or urinary urgency Musc: Reports: back pain; Denies: neck pain Skin/Breast: Denies: rash or new lesions Neuro: Denies: headache(s) or dizziness PFSH ED 2 PFSH: Social History Smoking and tobacco/nicotine status: never used tobacco/nicotine Physical Exam 2 Const: COMMON NORMALS: no acute distress, patient oriented x3, no limitations, healthy appearing, alert and well nourished GENERAL APPEARANCE: cooperative and comfortable ORIENTATION/CONSCIOUSNESS: Yes awake HENMT: COMMON NORMALS: normocephalic, atraumatic, hearing grossly normal bilaterally, external ears normal, Normal external nose present, Normal nasal mucous membranes and turbinates present and moist oral mucous membranes HEAD & SCALP: normocephalic and atraumatic NOSE: Normal external nose present and Normal nasal mucous membranes and turbinates present EXTERNAL EAR: Yes external ears normal Eye: COMMON NORMALS: Equal, round and reactive pupils present, EOMs intact bilaterally, conjunctivae normal and normal visual cotton by confrontation C ONJUNCTIVA: Yes conjunctivae normal PUPIL: Yes Equal, round and reactive pupils present Neck/C-Spine: COMMON NORMALS: full ROM, supple, no meningeal signs and no JVD Resp: COMMON NORMALS: normal respiratory effort, No retractions, No use of accessory muscles and clear to auscultation bilaterally AUSCULTATION: clear to auscultation bilaterally, no crackles, no rales, no rhonchi and no wheezes Cardio: COMMON NORMALS: no JVD, regular rate, regular rhythm, S1 normal heart sound present, S2 normal heart sound present, No gallops present (Cardio), No clicks present (Cardio), No murmurs present (Cardio), No rub (Cardio) and Peripheral pulses 2+ throughout RATE: regular rate RHYTHM: regular rhythm HEART SOUNDS: S1 normal heart sound present and S2 normal heart sound present PERIPHERAL PULSES: Peripheral pulses 2+ throughout GI: COMMON NORMALS: Normal to inspection, nondistended, normoactive bowel sounds present, Soft to palpation, No hepatosplenomegaly present and no masses AUSCULTATION: Yes normoactive bowel sounds PALPATION: Yes Soft to palpation, No Guarding due to palpation present (GI), No Rigid due to palpation and Yes No hepatosplenomegaly present RECTAL EXAM: deferred OTHER: Some epigastric and right upper quadrant tenderness to palpation. Positive Carl sign : COMMON NORMALS: Yes no CVA tenderness BLADDER/KIDNEY EXAM: Yes no CVA tenderness Back/Pelvis: COMMON NORMALS: no CVA tenderness Extremity: COMMON NORMALS: normal to inspection and full ROM Neuro: COMMON NORMALS: patient oriented x3, moves all extremities, no focal motor deficits and no sensory deficits noted SENSORIUM/ORIENTATION: Yes alert MENINGEAL SIGNS: Yes no meningeal signs Psych: COMMON NORMALS: mental status grossly normal, cooperative and speech normal SPEECH: Yes normal speech Skin: COMMON NORMALS: no rashes or lesions noted GENERAL SKIN EXAM: no rashes or lesions noted Course 2 Vital Signs: Vital signs: Vital Signs Temperature 98.8 F 12/12/23 18:04 Pulse Rate 76 12/12/23 21:28 Respiratory Rate 16 12/12/23 21:28 Blood Pressure 116/77 12/12/23 21:28 Pulse Oximetry 97 12/12/23 21:28 Oxygen Delivery Me thod Room Air 12/12/23 18:04 MDM - Abdominal Pain Medical Decision Making Patient presented with up to a week of abdominal pain and very severe symptoms. Had multiple swabs that were negative this weekend. Pain was worsening specifically to right upper quadrant with extension of the back epigastric region, still has her gallbladder. Also noted worse with eating. She was attempted to give a GI cocktail but threw this up soon after. She was started on IV and given fluids and Zofran through the IV. Lab work unremarkable and her right upper quadrant ultrasound was also nondiagnostic. Urinalysis did reveal signs of urinary tract infection with blood, however patient states she recently finished her menstrual cycle. At this time we will treat for urinary tract infection with ciprofloxacin and she is encouraged to follow-up with primary care with any worsening of symptoms. Also encouraged to drink plenty of fluids and will return with any new or concerning symptoms. Lab Data 12/12/23 18:26 12/12/23 18:26 Labs/Radiology: Radiology Impressions Gallbladder Ultrasound 12/12/23 18:28 IMPRESSION: 1. Gallbladder is decompressed. Mild gallbladder wall thickening is likely related to underdistention. No sonographic evidence of acute cholecystitis. Isolated gallbladder wall thickening in the setting of an otherwise unremarkable gallbladder can be seen with acute hepatitis, though the degree of gallbladder wall thickening is usually more pronounced with hepatitis. Additionally, there are no sonographic abnormalities within the liver to suggest this diagnosis. Recommend correlation clinical findings. 2. Mild hepatomegaly. Laboratory Results WBC 8.96 10^3/uL (3.29-11.43) 12/12/23 18:26 RBC 5.65 10^6/uL (3.85-5.65) 12/12/23 18:26 Hgb 12.50 g/dL (11.27-16.99) 12/12/23 18:26 Hct 42.3 % (36-47) 12/12/23 18:26 MCV 74.9 fl (85-98) L 12/12/23 18:26 MCH 22.1 pg (27-33) L 12/12/23 18:26 MCHC 29.6 g/dL (30-55) L 12/12/23 18:26 RDW 15.8 % (12.1-15.1) H 12/12/23 18:26 Plt Count 330 10^3/cmm (157-399) 12/12/23 18:26 MPV 9.6 fL (7.4-10.4) 12/12/23 18:26 Neut % (Auto) 59.1 % 12/12/23 18:26 Lymph % (Auto) 27.5 % 12/12/23 18:26 [place] % (Auto) 8.4 % 12/12/23 18:26 Eos % (Auto) 4.4 % 12/12/23 18:26 Baso % (Auto) 0.4 % 12/12/23 18:26 Neut # (Auto) 5.30 10^3/uL (1.8-7.7) 12/12/23 18:26 Lymph # (Auto) 2.5 10^3/uL (0.8-4.8) 12/12/23 18:26 [place] # (Auto) 0.8 10^3/uL (0.2-0.9) 12/12/23 18:26 Eos # (Auto) 0.4 10^3/uL (0.0-0.8) 12/12/23 18:26 Baso # (Auto) 0.0 10^3/uL (0.0-0.1) 12/12/23 18:26 Nucleated RBC % (auto) 0 % 12/12/23 18:26 Nucleated RBCs # 0.0 /100WBC 12/12/23 18:26 Sodium 138 mmol/L (136-145) 12/12/23 18:26 Potassium 3.9 mmol/L (3.5-5.1) 12/12/23 18:26 Chloride 101 mmol/L (98-107) 12/12/23 18:26 Carbon Dioxide 23 mmol/L (22-29) 12/12/23 18:26 Anion Gap 17.9 (5-19) 12/12/23 18:26 BUN 9 mg/dL (6-20) 12/12/23 18:26 Creatinine 0.7 mg/dL (0.5-0.9) 12/12/23 18:26 GFR Calculation 104.6 mL/min (90-130) 12/12/23 18:26 Glucose 89 mg/dL (65-115) 12/12/23 18:26 Calculated Osmolality 284 mOsm/kg (285-295) L 12/12/23 18:26 Calcium 9.2 mg/dL (8.5-10.5) 12/12/23 18:26 Total Bilirubin 0.3 mg/dL (0.15-1.2) 12/12/23 18:26 AST 19 U/L (0-32) 12/12/23 18:26 ALT 29 U/L (0-33) 12/12/23 18:26 Alkaline Phosphatase 88 U/L (35-105) 12/12/23 18:26 Total Protein 8.3 g/dL (6.6-8.7) 12/12/23 18:26 Albumin 4.1 g/dL (3.5-5.2) 12/12/23 18:26 Globulin 4.2 g/dL (1.3-4.6) 12/12/23 18:26 Lipase 35 U/L (13-60) 12/12/23 18:26 HCG, Qual Negative (Negative) 12/12/23 18:26 Urine Color Yellow (Yellow) 12/12/23 19:51 Urine Appearance Cloudy (CLEAR) A 12/12/23 19:51 Urine pH 5.5 (5-7) 12/12/23 19:51 Ur Specific [place] 1.019 (1.005-1.030) 12/12/23 19:51 Urine Protein Trace (Negative) A 12/12/23 19:51 Urine Glucose (UA) Negative (Normal) 12/12/23 19:51 Urine Ketones Negative (Negative) 12/12/23 19:51 Urine Blood 3+ (Negative) A 12/12/23 19:51 Urine Nitrate Negative (Negative) 12/12/23 19:51 Urine Bilirubin Negative (Negative) 12/12/23 19:51 Urine Urobilinogen 0.2 mg/dL (Negative) 12/12/23 19:51 Ur Leukocyte Esterase 1+ (Negative) A 12/12/23 19:51 Urine RBC 6-10 /hpf (0-2) 12/12/23 19:51 Urine WBC 11-20 /hpf (0-5) H 12/12/23 19:51 Ur Squamous Epith Cells 21-50 /hpf (0-5) 12/12/23 19:51 Amorphous Sediment Not Reportable 12/12/23 19:51 Urine Bacteria 2+ /hpf (NONE) H 12/12/23 19:51 Hyaline Casts 1.21 /lpf 12/12/23 19:51 SARS-CoV-2 Ag (Rapid) negative (Negative) 12/12/23 18:54 All radiology interpretation(s) finalized by discharge Discharge Plan Discharge Patient Disposition: Home Clinical Impression: Urinary tract infection Qualifiers: Urinary tract infection type: site unspecified Hematuria presence: without hematuria Qualified Code(s): N39.0 - Urinary tract infection, site not specified Condition: Stable Prescriptions: New Cipro 500 mg tablet 500 mg PO BID 10 Days Qty: 20 0RF No Action pren vit comb.1-iron cb-FA-DSS 90-1-50 mg Tablet 1 tab PO DAILY docusate sodium 100 mg Capsule 100 mg PO BID Qty: 14 0RF ibuprofen 800 mg Tablet 800 mg PO TID Qty: 45 0RF hydrocodone-acetaminophen 5-325 mg Tablet 1 tab PO Q6H PRN (Reason: Moderate To Severe Pain) Qty: 28 0RF Discharge Orders: Discharge ED (Routine); Ordered 12/12/23 Ordered By: Fox Rodas Referrals: Devante Duque MD [Primary Care Provider] - Discharge Diet: As Directed Discharge Activity: Increase activity as tolerated Patient Instructions: Urinary Tract Infection in Women (ED) Activity Restrictions/Additional Instructions: Drink plenty of fluids and take antibiotics as prescribed. Work note is provided. Follow-up with primary care for any further evaluation and return with any new or worsening. Stand Alone Forms: Work/School Release Coding Level of Care Code ED Institutional Custodian for Afia Bowman
[2023-12-12] MEDS: sodium chloride 0.9% 1,000 ML 999 ML IV (18:43)
[2023-12-12] MEDS: lidocaine 2% viscous 15 ML, aluminum-mag hydrox-simethicon 30 ML, sucralfate oral liq 1 GM PO (18:45)
[2023-12-12] MEDS: ondansetron 2 mg/ML SDV 2 mL 4 MG IVP (18:47)
[2023-12-12 18:48] LABS: Basophils % 0.4 %; Eosinophils # 0.4 10^3/uL (0.0-0.8); Eosinophils % 4.4 %; Hematocrit 42.3 % (36-47); Lymphocytes # 2.5 10^3/uL (0.8-4.8); Lymphocytes % 27.5 %; Mean Corpuscular HGB Conc 29.6 g/dL (30-55); Mean Corpuscular Hemoglobin 22.1 pg (27-33); Mean Corpuscular Volume 74.9 fl (85-98); Mean Platelet Volume 9.6 fL (7.4-10.4); Monocytes # 0.8 10^3/uL (0.2-0.9); Monocytes % 8.4 %; Neutrophils % 59.1 %; Nucleated Red Blood Cells % 0 %; Platelet Count 330 10^3/cmm (157-399); Red Blood Count 5.65 10^6/uL (3.85-5.65); Red Cell Distribution Width 15.8 % (12.1-15.1); White Blood Count 8.96 10^3/uL (3.29-11.43)
[2023-12-12 19:02] LABS: HCG, Serum Qual Negative (Negative)
[2023-12-12 19:07] LABS: Slide Review Slide Review Perform
[2023-12-12 19:22] LABS: Alanine Aminotransferase 29 U/L (0-33); Albumin Level 4.1 g/dL (3.5-5.2); Alkaline Phosphatase 88 U/L (35-105); Anion Gap 17.9 (5-19); Aspartate Amino Transferase 19 U/L (0-32); Carbon Dioxide 23 mmol/L (22-29); Chloride 101 mmol/L (98-107); Globulin 4.2 g/dL (1.3-4.6); Glucose 89 mg/dL (65-115); Lipase 35 U/L (13-60); Potassium 3.9 mmol/L (3.5-5.1); Sodium 138 mmol/L (136-145); Total Bilirubin 0.3 mg/dL (0.15-1.2); Total Protein 8.3 g/dL (6.6-8.7)
[2023-12-12 19:32] LABS: SARS Covid-2 Antigen negative (Negative)
[2023-12-12 19:36] LABS: Blood Urea Nitrogen 9 mg/dL (6-20); Calcium 9.2 mg/dL (8.5-10.5); Creatinine Clr Calc Pharmacy 152.9893; Glomerular Filtration Rate 104.6 mL/min (90-130); Osmolality Calculated 284 mOsm/kg (285-295)
[2023-12-12 20:02] LABS: Charge for UA Resulting for Rev
[2023-12-12 20:07] LABS: Bilirubin Urine Negative (Negative); Blood Urine 3+ (Negative); Glucose Urine UA Negative (Normal); Ketones Urine Negative (Negative); Leukocyte Esterase Urine 1+ (Negative); Nitrate Urine Negative (Negative); Protein Urine Trace (Negative); Specific Gravity, Urine 1.019 (1.005-1.030); Urine Appearance Cloudy (CLEAR); Urine Color Yellow (Yellow); Urobilinogen Urine 0.2 mg/dL (Negative); pH Urine 5.5 (5-7)
[2023-12-12 20:13] LABS: Bacteria Urine 2+ /hpf; Hyaline Casts Urine 1.21 /lpf; Squamous Epithelial Cell Urine 21-50 /hpf (0-5)
[2023-12-12 20:50] LABS: UA Slide Review UA Slide Review Perf
[2023-12-12] MEDS: ciprofloxacin 500 mg Tablet PO (21:21)
[2023-12-12 21:28] VITALS: BP 116/77; PULSE 76; RESP 16; O2SAT 97
== END 2023-12-12 21:30 | disposition home or self-care (01) ==
PROVIDERS: Emergency Provider Physician Assistant; PCP Family Medicine
DX: N39.0 Urinary tract infection, site not specified (principal); Z11.52 Encounter for screening for COVID-19
CPT/HCPCS: 36415; 76705; 80053; 81003; 81015; 83690; 84703; 85025; 87426; 96361; 96374; 99285; J2405; J7030

== ENCOUNTER 2024-02-21 08:07 | Outpatient (CLI) | payer OTHER, MEDICAID, SELFPAY ==
--- NOTE | 2024-02-21 08:15 | NM_ITS ---
WS: [id number] NUCLEAR MEDICINE HIDA SCAN WITH GALLBLADDER EJECTION FRACTION HISTORY: RUQ PAIN COMPARISON: 02/01/2018 TECHNIQUE: The patient was intravenously injected with 6.2 mCi of TC99m Mebrofenin. Immediate imaging over the right upper quadrant was followed by 5 minute image and additional images for a total of 60 minutes. Normal uptake of radiotracer throughout the liver. Activity identified in the gallbladder at 10 minutes and well distended by 60 minutes. Activity in the proximal small bowel was seen by 60 minutes. Good washout of the radiotracer from the liver by 60 minutes. The patient then drank 8 ounces of Ensure Plus. Ejection fraction at 60 minutes was 89%. Normal GB ej ection fraction is 35-75%. Post fatty meal symptoms: None. NM/NM hepatobiliary w phar* [id number] IMPRESSION: 1. Normal HIDA scan. 2. Normal gallbladder ejection fraction.
== END 2024-02-21 08:08 | disposition home or self-care (01) ==
LOC: RAD 08:07
PROVIDERS: PCP Family Medicine; Visit Provider Family Medicine
DX: R10.9 Unspecified abdominal pain (principal)
CPT/HCPCS: 78227; A9537